=== PATIENT | male | born 1990 | race Two or more races ===

== ENCOUNTER 2018-02-27 19:58 | Emergency (ER) | payer OTHER ==
[2018-02-27 20:04] VITALS: BP 122/79; PULSE 78; TEMP 98.1; BMI 29.4
--- NOTE | 2018-02-27 20:05 | PDOC ---
Rapid Medical Evaluation Time Seen by Provider: 02/27/18 20:01 Medical Evaluation: 02/27/18 20:02 I have performed a brief in-person evaluation of this patient. The patient presents with a chief complaint of: left neck, arm, chest and leg tingling x3 days Pertinent physical exam findings: No sensory changes. Lungs CTAB. I have ordered the following: EKG, labs The patient will proceed to the ED for further evaluation. Discharge Disposition - Diagnosis Chest pain - Referrals - Patient Instructions - Post Discharge Activity
[2018-02-27 20:35] LABS: BASO % 0.7 % (0-2.0); EOS % 1.3 % (0-4.5); HEMATOCRIT 43.9 % (35.4-49); HEMOGLOBIN 14.1 GM/dL (11.7-16.9); LYMPH % 30.2 % (8-40); MCH 25.7 pg (25.7-33.7); MCHC 32.1 g/dl (32.0-35.9); MEAN CELL VOLUME 79.9 fl (80-96); MEAN PLT VOLUME 10.1 fl (7.5-11.1); MONO % 11.3 % (3.8-10.2); NEUT % 56.5 % (42.8-82.8); PLATELET COUNT 165 K/MM3 (134-434); RBC 5.49 M/mm3 (4.00-5.60); RDW 13.6 % (11.9-15.9); WHITE BLOOD COUNT 6.4 K/mm3 (4.0-10.0)
[2018-02-27 21:05] LABS: ALBUMIN 4.3 g/dl (3.4-5.0); ANION GAP 7 (8-16); BILIRUBIN,TOTAL 0.3 mg/dL (0.2-1.0); BLOOD UREA NITROGEN 11 mg/dL (7-18); CHLORIDE 108 mmol/L (98-107); CO2 25 mmol/L (21-32); GLUCOSE,RANDOM 86 mg/dL (74-106); MAGNESIUM 2.3 mg/dL (1.8-2.4); POTASSIUM 4.2 mmol/L (3.5-5.1); SGOT/AST 21 U/L (15-37); SGPT/ALT 60 U/L (12-78); SODIUM 140 mmol/L (136-145); TOT PROT 8.2 g/dl (6.4-8.2)
[2018-02-27 21:08] LABS: ALK PHOS 153 U/L (45-117)
[2018-02-27 21:12] LABS: INR 0.91 (0.82-1.09); PROTHROMBIN TIME (PATIENT) 10.3 SEC (9.7-13.0)
--- NOTE | 2018-02-27 21:20 | PDOC ---
History of Present Illness <Naima Lu - Last Filed: 02/27/18 22:29> - General History Source: Patient Exam Limitations: No Limitations - History of Present Illness Initial Comments: 02/27/18 22:52 The patient is a 27 year old male with no significant PMH who presents to the emergency department with left sided tingling beginning approximately 4 days ago. The patient states he developed intermittent tingling to his left fingers on Saturday which began to radiate to the right side of his chest on Saturday and up to his neck on Saturday. He states he woke up today with left neck and left leg stiffness with an associated tingling sensation to the left side of his face and neck. He reports going to his PCP yesterday and receiving an ECHO but is unsure of the results. He reports going to Urgent Care today for evaluation of his left sided tingling who told him to present to the ED, prompting his visit. 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 The patient denies taking any medications for pain. The patient denies chest pain, shortness of breath, headache and dizziness. Denies fever, chills, nausea, vomit, diarrhea and constipation. Denies dysuria, frequency, urgency and hematuria. Allergies: NKA Past surgical history: None reported. Social history: No reported cigarette, alcohol, or drug use. PCP: Not on Staff. <Viet Mcmillan - Last Filed: 02/27/18 22:53> - General Chief Complaint: Chest Pain Stated Complaint: PCP SENT/CHEST PAIN Time Seen by Provider: 02/27/18 20:01 Past History - Past Medical History COPD: No - Suicide/Smoking/Psychosocial Hx Smoking History: Never smoked Information on smoking cessation initiated: No <Naima Lu - Last Filed: 02/27/18 22:29> <Viet Mcmillan - Last Filed: 02/27/18 22:53> - Past Medical History Allergies/Adverse Reactions: Allergies Allergy/AdvReac Type Severity Reaction Status Date / Time No Known Allergies Allergy Verified 02/27/18 20:04 Home Medications: Ambulatory Orders Ibuprofen [Motrin -] 600 mg PO TID PRN #21 tablet 02/27/18 Methocarbamol [Robaxin -] 500 mg PO BID PRN #10 tablet 02/27/18 Review of Systems - Review of Systems Able to Perform ROS?: Yes Comments:: 02/27/18 22:52 GENERAL/CONSTITUTIONAL: No fever or chills. No weakness. HEAD, EYES, EARS, NOSE AND THROAT: No change in vision. No ear pain or discharge. No sore throat. GASTROINTESTINAL: No nausea, vomiting, diarrhea or constipation. GENITOURINARY: No dysuria, frequency, or change in urination. CARDIOVASCULAR: No chest pain or shortness of breath. RESPIRATORY: No cough, wheezing, or hemoptysis. MUSCULOSKELETAL: (+) Left neck stiffness. (+) Left leg stiffness. No joint pain. No back pain. SKIN: No rash NEUROLOGIC: (+) Left side tingling, fingers with radiation up to left side of neck and face. No headache, vertigo, loss of consciousness, or change in strength. ENDOCRINE: No increased thirst. No abnormal weight change. HEMATOLOGIC/LYMPHATIC: No anemia, easy bleeding, or history of blood clots. ALLERGIC/IMMUNOLOGIC: No hives or skin allergy. <Viet Mcmillan - Last Filed: 02/27/18 22:53> *Physical Exam - Vital Signs Last Vital Signs Temp Pulse Resp BP Pulse Ox 98.1 F 78 18 122/79 99 02/27/18 20:02 02/27/18 20:02 02/27/18 20:02 02/27/18 20:02 02/27/18 20:02 <Naima Lu - Last Filed: 02/27/18 22:29> - Vital Signs Last Vital Signs Temp Pulse Resp BP Pulse Ox 98.1 F 78 18 122/79 99 02/27/18 20:02 02/27/18 20:02 02/27/18 20:02 02/27/18 20:02 02/27/18 20:02 - Physical Exam Comments: 02/27/18 22:52 Constitutional: Awake, alert, oriented. No acute distress. Head: Normocephalic. Atraumatic Neck: Supple. Full ROM. No lymphadenopathy. Cardiovascular: Regular rate. Regular rhythm. S1, S2 regular. Distal pulses are 2+ and symmetric. Pulmonary/Chest: No evidence of respiratory distress. Clear to auscultation bilaterally No wheezing, rales or rhonchi. Back: (+) Left paraspinal and trapezius tenderness to palpation with muscle spasms. Palpation reproduces LUE numbness. No CVA tenderness. No midline C, T, or L spine tenderness. Musculoskeletal: (+) Palpation at ulnar gutter and tinel positive. No edema. No cyanosis. No clubbing. Full range of motion in all extremities. No calf tenderness. Radial/pedal pulses are intact and 2+ bilaterally. Skin: Skin is warm and dry. No petechiae. No purpura. Neurological: Alert and oriented to person, place, and time. Cranial nerves II -XII are grossly intact. Normal speech. Strength is grossly symmetric. No sensory deficits. Sensation intact. Psychiatric: Good eye contact. Normal interaction, affect and behavior <Viet Mcmillan - Last Filed: 02/27/18 22:53> Heart Score/ECG Review - ECG Intrepretation Comment:: 02/27/18 21:45 sinus at 68, nl axis, nl interval, nonspecific t wave inversions III, no acute st/t wave findings <Naima Lu - Last Filed: 02/27/18 22:29> ED Treatment Course - LABORATORY CBC & Chemistry Diagram: 02/27/18 20:23 02/27/18 20:23 - ADDITIONAL ORDERS Additional order review: Laboratory Results 02/27/18 20:23 Sodium 140 Potassium 4.2 Chloride 108 H Carbon Dioxide 25 Anion Gap 7 L BUN 11 Creatinine 1.0 Creat Clearance w eGFR > 60 Random Glucose 86 Calcium 9.0 Magnesium 2.3 Total Bilirubin 0.3 AST 21 ALT 60 Alkaline Phosphatase 153 H Creatine Kinase 170 Troponin I < 0.02 Total Protein 8.2 Albumin 4.3 02/27/18 20:23 RBC 5.49 MCV 79.9 L MCHC 32.1 RDW 13.6 MPV 10.1 Neutrophils % 56.5 Lymphocytes % 30.2 Monocytes % 11.3 H Eosinophils % 1.3 Basophils % 0.7 <Naima Lu - Last Filed: 02/27/18 22:29> - LABORATORY CBC & Chemistry Diagram: 02/27/18 20:23 02/27/18 20:23 - ADDITIONAL ORDERS Additional order review: Laboratory Results 02/27/18 02/27/18 20:23 20:23 PT with INR 10.30 INR 0.91 D-Dimer 255 Sodium 140 Potassium 4.2 Chloride 108 H Carbon Dioxide 25 Anion Gap 7 L BUN 11 Creatinine 1.0 Creat Clearance w eGFR > 60 Random Glucose 86 Calcium 9.0 Magnesium 2.3 Total Bilirubin 0.3 AST 21 ALT 60 Alkaline Phosphatase 153 H Creatine Kinase 170 Creatine Kinase Index 0.5 CK-MB (CK-2) 0.85 Troponin I < 0.02 Total Protein 8.2 Albumin 4.3 02/27/18 20:23 RBC 5.49 MCV 79.9 L MCHC 32.1 RDW 13.6 MPV 10.1 Neutrophils % 56.5 Lymphocytes % 30.2 Monocytes % 11.3 H Eosinophils % 1.3 Basophils % 0.7 - Medications Given in the ED: ED Medications Discontinued Medications Generic Name Dose Route Start Last Admin Trade Name Freq PRN Reason Stop Dose Admin Ketorolac Tromethamine 30 mg 02/27/18 21:34 02/27/18 21:47 Toradol Injection - IVPUSH 02/27/18 21:35 30 mg ONCE ONE Administration Methocarbamol 500 mg 02/27/18 21:34 02/27/18 21:46 Robaxin - PO 02/27/18 21:35 500 mg ONCE ONE Administration <Viet Mcmillan - Last Filed: 02/27/18 22:53> Medical Decision Making - Medical Decision Making 02/27/18 21:45 a/p: 27yo male with 3 days of left arm tingling and numbness -pain radiated from fingers to chest and neck -paraspinal neck ttp sent from urgent care for t wave inversions iii L leg twinge of pain -no risk factors for PE, perc negative no risk factors for sudden cardiac or mi pt with recent carrying heavy chairs and strained L sided of neck labs sent from [facility] ekg nonacute no acute findings on outpt cxr pending dimer 02/27/18 21:49 dimer negative 02/27/18 22:29 after toradol and robaxin pt feeling much better cxr clear labs reviewed in detail with the patient. 02/27/18 22:30 pt stable for d/c to home discussed muscle spasm around nerves discussed reasons to follow up with neurosx for spine eval discussed epson salt bathes discussed calling PMD for echo results discussed reasons to follow up with cards pt verbalizes all understanding answered all questions <Naima Lu - Last Filed: 02/27/18 22:29> *DC/Admit/Observation/Transfer - Discharge Dispostion Decision to Admit order: No - Attestations Physician Attestion: 02/27/18 22:35 I, Dr. Naima Lu, DO, attest that this document has been prepared under my direction and personally reviewed by me in its entirety. I further attest, that it accurately reflects all work, treatment, procedures and medical decision -making performed by me. <Naima Lu - Last Filed: 02/27/18 22:29> - Attestations Scribe Attestion: 02/27/18 22:53 Documentation prepared by Viet Mcmillan, acting as medical office assistant for Naima Lu DO. <Viet Mcmillan - Last Filed: 02/27/18 22:53> Diagnosis at time of Disposition: Chest pain, Paresthesias, Neck muscle spasm - Discharge Dispostion Disposition: HOME Condition at time of disposition: Stable - Prescriptions Prescriptions: Ibuprofen [Motrin -] 600 mg PO TID PRN #21 tablet PRN Reason: Pain Methocarbamol [Robaxin -] 500 mg PO BID PRN #10 tablet PRN Reason: Muscle Spasms - Referrals Referrals: Teodoro López MD [Staff Physician] - Elvin Yung MD [Staff Physician] - Raf Champion MD, FAANS [Staff Physician] - - Patient Instructions Printed Discharge Instructions: DI for Atypical Chest Pain Additional Instructions: Please take all medications as prescribed. Please return to the ED with any further concerns or complaints. Please call your PMD to obtain your echo results tomorrow. Please soak in epson salt bathes. Please follow up with the neurosurgeon for further evaluation of your neck pain.
[2018-02-27] MEDS ORDERED: METHOCARBAMOL 500 MG TABLET PO ONE (21:34)
[2018-02-27] MEDS ORDERED: KETOROLAC TROMETHAMINE 30 MG/1 ML VIAL IVPUSH ONE (21:34)
[2018-02-27] MEDS ORDERED: METHOCARBAMOL 500 MG TABLET ONE (21:39)
[2018-02-27] MEDS ORDERED: KETOROLAC TROMETHAMINE 30 MG/1 ML VIAL ONE (21:40)
--- NOTE | 2018-02-28 09:12 | EKG ---
Test Reason : Blood Pressure : / mmHG Vent. Rate : 068 BPM Atrial Rate : 068 BPM P-R Int : 134 ms QRS Dur : 086 ms QT Int : 370 ms P-R-T Axes : 056 051 017 degrees QTc Int : 393 ms NORMAL SINUS RHYTHM NORMAL ECG NO PREVIOUS ECGS AVAILABLE Confirmed by CHIRAG COLEMAN MD ([id number]) on 02/28/2018 9:11:56 AM Referred By: Confirmed By:CHIRAG COLEMAN MD
== END 2018-02-27 22:50 | disposition home or self-care (01) ==
LOC: JER 19:58
PROC: 3E0333Z Introduction of Anti-inflammatory into Peripheral Vein, Percutaneous Approach (ICD-10-PCS; principal; 2018-02-27)
DX: R07.89 Other chest pain (principal); M62.838 Other muscle spasm; R20.2 Paresthesia of skin
CPT/HCPCS: 36415; 71046-TC-FY; 80053; 82550; 82553; 83735; 84484; 85025; 85379; 85610; 93005; 93010; 99285-25